=== PATIENT | male | born 1930 | race Caucasian/White ===

== ENCOUNTER → 2016-08-16 | Outpatient (CLI) | payer MEDICARE ==
[~2016-08-16] MED LIST: ASPIRIN81 M2 PO; BREO ELLIPTA I1 EACH INH; DOXYCYCLINE PO; DURAGESIC1 EAC1 TD; LYRICA50 MG PO; OXYCODONE HCL15 MG PO; PREDNISONE10 MG PO; PRILOSEC PO; SINGULAIR PO; STOOL SOFTENER1 EAC1 PO
== END | disposition home or self-care (01) ==
LOC: CECH 12:39
DX: R06.02 Shortness of breath (principal); R60.9 Edema, unspecified
CPT/HCPCS: 93306